=== PATIENT | male | born 1965 | race Caucasian/White ===

== ENCOUNTER 2018-04-05 07:52 | Day surgery (SDC) | payer BC ==
[2015-06-18 19:55] VITALS: BMI 23.6
[2018-04-05] MEDS ORDERED: Lidocaine 2% Jelly (30 ml) ONE (09:48)
[2018-04-05 10:54] VITALS: BP 110/70; PULSE 78; RESP 19; TEMP 98.3; O2SAT 99
== END 2018-04-05 11:19 | disposition home or self-care (01) ==
LOC: ENDO 07:52
PROVIDERS: ATTEND Internal Medicine Gastroenterology
DX: C7A.026 Malignant carcinoid tumor of the rectum (principal); I10 Essential (primary) hypertension; G47.33 Obstructive sleep apnea (adult) (pediatric)